=== PATIENT | male | born 1965 | race American Indian/Alaskan Native ===

== ENCOUNTER 2019-01-28 09:22 | Day surgery (SDC) | payer BC ==
[~2019-01-28 09:22] MED LIST: NACL 0.9% 1000 ML 1,000 ML IV SCH
[2019-01-28] MEDS ORDERED: VERSED ONE (10:21)
[2019-01-28] MEDS ORDERED: DIPRIVAN 10 MG/ML IV ONE ×2 (10:22→10:32)
--- NOTE | 2019-01-28 10:51 | Procedure Note ---
Date of procedure: 01/28/19 Pre-op diagnosis: Colon Polyp Screening Post-op diagnosis: other Procedure: Colonoscopy with Cold Biopsy Anesthesia: MAC Surgeon: GILES HDZ Estimated blood loss: minimal Pathology: list Specimen disposition: to lab Condition: stable Disposition: same day (Avoid aspirin and aspirin relatedproducts for 5 days. Resume home medication and follow up in 1 to 2 weeks ([phone]).)
--- NOTE | 2019-01-28 12:15 | Anesthesia Consultation ---
Anesthesia Consult and Med Hx Date of service: 01/28/19 - Airway Anesthetic Teeth Evaluation: Good ROM Head & Neck: Adequate Mental/Hyoid Distance: Adequate Mallampati Class: Class III Intubation Access Assessment: Possibly Difficult - Pulmonary Exam CTA: Yes - Cardiac Exam Cardiac Exam: RRR - Pre-Operative Health Status ASA Pre-Surgery Classification: ASA2 Proposed Anesthetic Plan: MAC - Pulmonary Hx Smoking: No Hx Respiratory Symptoms: No - Cardiovascular System Hx Hypertension: Yes (took antihypertensives this morning) Hx Heart Attack/AMI: No - Central Nervous System CVA: No - Gastrointestinal Hx Gastroesophageal Reflux Disease: No - Endocrine Hx Renal Disease: No Hx Liver Disease: No Hx Non-Insulin Dependent Diabetes: Yes Hx Thyroid Disease: No - Other Systems Hx Obesity: Yes - Additional Comments Anesthesia Medical History Comments: No prior anesthetics.
--- NOTE | 2019-01-28 12:15 | Anesthesia Day of Surgery ---
Anesthesia Day of Surgery - Day of Surgery Patient Examined: Yes Patient H&P Reviewed: Yes Patient is NPO: Yes
[2019-01-28 14:21] VITALS: BP 111/78
--- NOTE | 2019-01-28 15:31 | Operative Report ---
PROCEDURE: Colonoscopy. Thank you for the kind referral. This is a 53-year-old -[place] gentleman, who has been having a colonoscopy done as part of colon polyp screening. DESCRIPTION OF PROCEDURE: The procedure was done after getting informed consent with MAC anesthesia. Initial rectal exam was unremarkable. Instrument was passed through the rectum onto the cecum, which was identified by the ileocecal valve and the appendiceal orifice. The cecum, ascending colon, transverse colon showed normal mucosa. The descending colon in the distal sigmoid there was a small 8-9 mm solitary polyp noted that was removed by cold biopsy. There was minimal bleeding from the biopsy sites. No complications associated with the polypectomy and rectum showed some minor internal hemorrhoids on the retroverted view. No diverticular disease was noted. ASSESSMENT: Colon polyp screening, solitary small sigmoid polyp removed by cold biopsy, mild internal hemorrhoid. There was minimal bleeding from the biopsy sites. No complications associated with the procedure. The patient will be asked to avoid aspirin and aspirin-related products for the next few days and follow up in the office in 1-2 weeks' time. RN, Maame Hein was in the room throughout the entirety of the procedure. JOB# [id number] JACQUE/LUCIO
== END 2019-01-28 09:23 | disposition home or self-care (01) ==
LOC: GIO 09:22
DX: Z12.11 Encounter for screening for malignant neoplasm of colon (principal); D12.5 Benign neoplasm of sigmoid colon; K64.8 Other hemorrhoids; I10 Essential (primary) hypertension; E66.9 Obesity, unspecified; E11.9 Type 2 diabetes mellitus without complications; Z68.35 Body mass index [BMI] 35.0-35.9, adult; Z79.899 Other long term (current) drug therapy; Z79.84 Long term (current) use of oral hypoglycemic drugs
CPT/HCPCS: 45380; 82962; 88305; J2250; J2704; J7030